=== PATIENT | female | born 1970 | race Caucasian/White ===

== ENCOUNTER → 2016-09-03 | Outpatient (CLI) | payer BC ==
--- NOTE | 2016-09-03 12:58 | WWHP ---
DATE OF SERVICE: 09/03/2016 CHIEF COMPLAINT: The patient is here for her routine gynecologic exam and mammogram. HPI: This is a 45-year-old G2, P2 with an LMP of 08/27/2016. Her is status post vasectomy. She is without gynecologic complaints and states her periods are regular every month. PAST MEDICAL HISTORY: Hypothyroidism, status post thyroidectomy. MEDICATIONS: 1. Synthroid 112 mcg daily. 2. Multivitamin daily. ALLERGIES: No known drug allergies. PAST SURGICAL HISTORY: Breast reduction surgery x2. 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 SOCIAL HISTORY: She denies tobacco and drug use and has about 2 alcoholic drinks per week. She has been since 1990 and works for a [employer]. She also started [employer] in [facility]. REVIEW OF SYSTEMS: Weight has been stable. She denies respiratory, cardiac, or GI problems. PHYSICAL EXAM: Blood pressure 98/49. Height 5 feet 6-1/2 inches. Weight 154 pounds. Temperature 98.4, pulse 64. This a well-developed, well-nourished white female who is alert and oriented x3 in no acute distress. HEENT is within normal limits. NECK: Supple without mass or thyromegaly. CHEST AND LUNGS: Clear to auscultation. HEART: Regular rate and rhythm. Breasts are without mass or discharge. Axillary exam is negative for adenopathy. BACK: Negative for CVA tenderness. ABDOMEN: Soft, nontender, without palpable masses. PELVIC EXAM: Normal external genitalia. Cervix and vagina appear normal. There is no evidence of prolapse. The uterus is midposition, nongravid size and nontender. There are no palpable adnexal masses or tenderness. Rectal exam is negative for mass or tenderness and is negative for occult blood. EXTREMITIES: Nontender. IMPRESSION: A 45-year-old gynecologically healthy female with normal gynecologic exam whose is status post vasectomy. PLAN: 1. Pap smear was performed. 2. Self-breast examination was discussed. 3. Mammogram will be done today. 4. Osteoporosis prevention was discussed. 5. She will return in one year.
--- NOTE | 2016-09-05 12:30 | MM ---
Reason for exam: screening (asymptomatic). Last mammogram was performed 2 years and 4 months ago. History: Family history of breast cancer in paternal aunt at age 40. Reductions of both breasts, 2005. Reductions of both breasts, 1993. Physical Findings: A clinical breast exam by your physician is recommended on an annual basis and results should be correlated with mammographic findings. MG 3D Screening Mammo W/Cad Bilateral CC and MLO view(s) were taken. Prior study comparison: May 10, 2014, bilateral MG screening mammo w CAD. May 12, 2012, mammogram, performed at [facility]. September 25, 2010, mammogram, performed at [facility]. The breast tissue is heterogeneously dense. This may lower the sensitivity of mammography. Post mammoplasty changes. New grouped calcifications upper outer quadrant right breast. New nodularity 12 o'clock left breast. ASSESSMENT: Incomplete: need additional imaging evaluation, BI-RAD 0 RECOMMENDATION: Special view mammogram of the right breast. Ultrasound of the left breast. [facility] will attempt to contact patient to return for supplemental views and ultrasound.
== END | disposition home or self-care (01) ==
LOC: WWCWWP 11:14
PROVIDERS: ATTEND Obstetrics & Gynecology
DX: Z12.31 Encounter for screening mammogram for malignant neoplasm of breast (principal); R92.8 Other abnormal and inconclusive findings on diagnostic imaging of breast
CPT/HCPCS: 77063; G0202

== ENCOUNTER → 2016-09-17 | Outpatient (CLI) | payer BC ==
--- NOTE | 2016-09-17 14:48 | MM ---
Reason for exam: additional evaluation requested from abnormal screening. Last mammogram was performed less than 1 month ago. History: Family history of breast cancer in paternal aunt at age 40. Reductions of both breasts, 2005. Reductions of both breasts, 1993. Physical Findings: Nurse did not find any significant physical abnormalities on exam. MG Work Up Mamm w CAD RT LM, CC with magnification, and LM with magnification view(s) were taken of the right breast. Prior study comparison: September 05, 2016, bilateral MG 3d screening mammo w/cad. May 10, 2014, bilateral MG screening mammo w CAD. Suspicious cluster of pleomorphic calcifications persists in the right breast. These results were verbally communicated with the patient and result sheet given to the patient on 09/17/16. ASSESSMENT: Suspicious, BI-RAD 4 RECOMMENDATION: Stereotactic core biopsy of the right breast. PENDING APPOINTMENT FOR SURGICAL CONSULTATION.
--- NOTE | 2016-09-17 14:50 | USB ---
Reason for exam: additional evaluation requested from abnormal screening. History: Family history of breast cancer in paternal aunt at age 40. Reductions of both breasts, 2006. Reductions of both breasts, 1993. US Breast Workup Limited LT Left breast ultrasound demonstrates a 0.7 x 0.9 x 0.5cm oval, cystic lesion at 12 o'clock, simple cyst. These results were verbally communicated with the patient and result sheet given to the patient on 09/17/16. ASSESSMENT: Benign, BI-RAD 2 us BIRADS 4 Suspicious mammogram. RECOMMENDATION: Stereotactic core biopsy. (right breast) PENDING APPOINTMENT FOR SURGICAL CONSULTATION. FRANKD
== END ==
LOC: RADMAMWWP 12:59
PROVIDERS: ATTEND Obstetrics & Gynecology
DX: R92.8 Other abnormal and inconclusive findings on diagnostic imaging of breast (principal)
CPT/HCPCS: 76642; G0206

== ENCOUNTER → 2016-09-20 | Day surgery (SDC) | payer BC ==
[~2016-09-20] MED LIST: ALPRAZolam 0.25 MG TAB ONE; BACITRACIN OINT 1 EACH PACKET TOPICAL ONE; LIDOCAINE 1% INJ 10MG/ML (20 ML MDV) ONE; SODIUM BICARB 4% 5 ML VIAL (0.48 MEQ/ML) ONE
--- NOTE | 2016-09-20 10:21 | MM ---
EXAMINATION TYPE: MG stereo VAD BX RT DATE OF EXAM: 09/20/2016 9:22 AM COMPARISON: Mammogram for May 2014, 17 September 2016 CLINICAL HISTORY: Abnormal mammogram TECHNIQUE: Stereotactic guided core biopsy of right breast. FINDINGS: The procedure of stereotactic guided core biopsy was explained to the patient. Benefits, alternatives, and risks were discussed. An informed consent was then obtained. The skin overlying a suitable path to the calcifications was localized with mammography, the skin was prepped, lidocaine used for local anesthesia. A vacuum assisted biopsy gun was used to obtain multiple core samples. Metallic clip was then placed. The patient tolerated the procedure well without any immediate complication. The patient was kept in the radiology department for short stay after the procedure and then discharged home in stable condition. Targeted calcifications are identified in specimen mammogram. Post biopsy digital mammogram shows the clip to appear in satisfactory position relative to the targeted area of concern on the preprocedure images. IMPRESSION: SUCCESSFUL, UNCOMPLICATED STEREOTACTIC GUIDED CORE BIOPSY OF AREA OF CONCERN IN THE right BREAST, FULL PATHOLOGY RESULTS TO FOLLOW. Pathology Results: Benign BREAST, RIGHT, CORE BIOPSY: FIBROCYSTIC CHANGES INCLUDING CYSTS, FIBROSIS, APOCRINE METAPLASIA AND CALCIUM OXYLATE CRYSTALS. Recommendation Follow up mammogram of the right breast in 6 months. BLANCA
== END ==
LOC: RADMAMWWP 07:06
PROVIDERS: ATTEND Surgery
DX: N60.11 Diffuse cystic mastopathy of right breast (principal); N60.31 Fibrosclerosis of right breast; N60.81 Other benign mammary dysplasias of right breast; R92.8 Other abnormal and inconclusive findings on diagnostic imaging of breast
CPT/HCPCS: 88305; 19081; A4648; J2001

== ENCOUNTER → 2019-04-20 | Outpatient (CLI) | payer BC ==
[2019-04-20 09:41] VITALS: BP 127/88; PULSE 58; RESP 18; TEMP 98; BMI 25.0
--- NOTE | 2019-04-20 11:52 | MM ---
Reason for exam: additional evaluation requested from prior study. Last mammogram was performed 2 years and 7 months ago. History: Family history of breast cancer in paternal aunt at age 40. Benign MG stereo VAD BX RT of the right breast, September 20, 2016. Reductions of both breasts, 2005. Reductions of both breasts, 1993. Physical Findings: Dr. Torres did breast exam. MG 3D Diag Mammo W/Cad LATIA Bilateral CC and MLO view(s) were taken. Prior study comparison: September 17, 2016, right breast MG work up mamm w CAD RT. September 05, 2016, bilateral MG 3d screening mammo w/cad. The breast tissue is heterogeneously dense. This may lower the sensitivity of mammography. There is a 1.2cm mass of the central upper left breast 4.5cm from nipple with internal calcifications. Benign appearing bilateral calcifications. Right biopsy marker noted. Post reduction change bilaterally. These results were verbally communicated with the patient and result sheet given to the patient on 04/20/19. ASSESSMENT: Incomplete: need additional imaging evaluation, BI-RAD 0 RECOMMENDATION: Ultrasound of the left breast. (upper outer quadrant)
--- NOTE | 2019-04-20 11:54 | USB ---
Reason for exam: additional evaluation requested from abnormal screening. History: Family history of breast cancer in paternal aunt at age 40. Benign MG stereo VAD BX RT of the right breast, September 20, 2016. Reductions of both breasts, 2005. Reductions of both breasts, 1993. US Breast Limited LT Left limited breast ultrasound including focal area of concern, retroareolar and axilla demonstrates a 0.8 x 0.6 x 0.5cm cystic lesion at 12 o'clock, a 0.3 x 0.3 x 0.4cm cystic lesion at 12 o'clock, both directly adjacent, benign, corresponds to mammogram, similar to ultrasound of 09/17/16 and duct ectasia at the nipple. These results were verbally communicated with the patient and result sheet given to the patient on 04/20/19. ASSESSMENT: Benign, BI-RAD 2 RECOMMENDATION: Routine screening mammogram of both breasts in 1 year.
--- NOTE | 2019-04-20 12:25 | P.HPOB ---
History of Present Illness H&P Date: 04/20/19 Chief Complaint: The patient is here for her routine gynecologic exam and ma mmogram. This is a 48-year-old with an LMP of March 2019. She states her menstrual periods have been fairly regular every month, but she has been experiencing significant hot flashes and night sweats which can be "awful" at times. She recently started taking a supplement for menopausal symptoms which she started yesterday. She states that her hot flashes have seemed better over the last 24 hours, but it is too early to tell how much the supplement is helping. Her biggest problem seems to be difficulty sleeping which is made worse by the night sweats and hot flashes. She states it is been a few years since she has really slept well. She tends to fall asleep without much problems initially, but will typically wake up around 1 AM and had a difficult time getting back to sleep. Review of Systems The patient has been stable over the last 2 years. She denies any current respiratory, cardiac, or G.I. problems. Earlier in the year, she did have some IBS type symptoms that lasted about 6 months but did eventually resolve. Past Medical History Past Medical History: Thyroid Disorder Additional Past Medical History / Comment(s): Hypothyroidism status post thyroidectomy. 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 History of Any Multi-Drug Resistant Organisms: None Reported Past Surgical History: Breast Surgery Additional Past Surgical History / Comment(s): Breast reduction surgery 2. Past Psychological History: No Psychological Hx Reported Smoking Status: Never smoker Past Alcohol Use History: Occasional (2 per week) Past Drug Use History: None Reported Additional History: She has been since 1990 and works for a [employer]. 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 - Past Family History Mother Family Medical History: Thyroid Disorder Additional Family Medical History / Comment(s): Colon polyps which were benign. Medications and Allergies Home Medications Medication Instructions Recorded Confirmed Type Levothyroxine Sodium [Synthroid] 112 mcg PO DAILY 04/20/19 04/20/19 History Multivitamin [Multivitamins Adult 1 each PO DAILY 04/20/19 04/20/19 History Gummies] Turmeric Root Extract [Turmeric] 500 mg PO DAILY 04/20/19 04/20/19 History Allergies Allergy/AdvReac Type Severity Reaction Status Date / Time No Known Allergies Allergy Unverified 04/20/19 09:36 Exam Vital Signs Temp Pulse Resp BP Pulse Ox 04/20/19 09:38 98.0 F 58 L 18 127/88 97 Intake and Output 04/19/19 04/20/19 04/20/19 22:59 06:59 14:59 Other: Weight 70.307 kg Height 5 feet 6 inches, weight 155 pounds, BMI 25.0. This is a well-developed well-nourished white female who is alert and oriented times 3 in no acute distress. HEENT: Within normal limits. NECK: Supple without mass or thyromegaly. CHEST AND LUNGS: Clear to auscultation. HEART: Regular rate and rhythm. BREASTS: Are without mass or discharge. AXILLARY EXAM: Negative for adenopathy. BACK: Negative for CVA tenderness. ABDOMEN: Soft, nontender, without palpable masses. PELVIC EXAM: Normal external genitalia. Cervix and vagina appear normal. There is no unusual discharge. There is no evidence of prolapse. The uterus is midposition, nongravid size and nontender. There are no palpable adnexal masses or tenderness. RECTAL EXAM: There is a small noninflamed hemorrhoid at the anus. The rectal exam is otherwise negative for mass or tenderness and is negative for occult blood. EXTREMITIES: Nontender. IMPRESSION: 1. 48-year-old perimenopausal female with vasomotor symptoms and insomnia are probably related to the menopausal change. 2. Normal gynecologic exam. 3. is status post vasectomy. PLAN: 1. Pap smear was performed. 2. Self breast awareness was discussed with the patient. 3. Screening mammogram will be done today. 4. We have had a long discussion regarding options for menopausal symptoms including supplements, HRT and nonhormonal prescription medications such as clonidine or SSRI medications. We have also discussed other conservative measures such as dressing in layers and drinking icewater at the onset of vasomotor symptoms. She would like to continue trying her supplement for her symptoms since the symptoms did seem to improve initially. She will call in 2-4 weeks if her symptoms are not improving and we can consider other options. 5. She would like a prescription for something to help her to sleep since the insomnia has been causing problems for her. She states she has not been taking anything to help her sleep. A prescription for Ambien 5 mg by mouth at at bedtime when necessary for insomnia will be sent to [facility] on [facility]. I recommended that she could not take it every night because it can be some possible dependence. 6. She will keep a menstrual calendar and call if menstrual problems. 7. She was advised to return in one year for her annual well woman exam and when necessary.
== END | disposition home or self-care (01) ==
LOC: WWCWWP 09:23
PROVIDERS: ATTEND Obstetrics & Gynecology
DX: R92.8 Other abnormal and inconclusive findings on diagnostic imaging of breast (principal)
CPT/HCPCS: 77062; 77066

== ENCOUNTER → 2020-10-06 | Outpatient (CLI) | payer BC ==
--- NOTE | 2020-10-06 11:45 | MR ---
EXAMINATION TYPE: MR brain and iac wo/w con DATE OF EXAM: 10/06/2020 COMPARISON: None HISTORY: Hearing test showed high freq hearing loss right side TECHNIQUE: Multiplanar, multisequence images of the brain and brainstem with high-resolution small altei-af-isue images obtained through the internal auditory canals is performed without and with IV contrast, util izing 7 mL intravenous Gadavist . FINDINGS: Diffusion weighted images demonstrate no evidence of a recent infarct or other diffusion ab normality. There is no extra-axial fluid collection. Focus of hyperintensity present within the per iventricular white matter on the right frontal lobe, axial image 21 measures proximally 9 mm, additio nal periventricular focus of hyperintensity in the right temporal lobe measures 10 mm in AP dimension , smaller left parietal hyperintensity on axial image 20 measures 5.9 mm, total of 5 lesions suspecte d. The ventricular system and cisternal spaces are normal in size and appearance. The brain volume i s age appropriate. There is no cerebellopontine angle mass. No evident abnormal soft tissue along the internal auditory canals. Midline structures demonstrate normal morphology. The craniocervical junction appears within normal limits. Post contrast images demonstrate no abnormal enhancement. The dural venous sinuses appear pa tent. The visualized sinuses are remarkable for mucoperiosteal thickening within the maxillary sinuse s, ethmoid air cells and frontal sinus and the globes are intact. IMPRESSION: Nonspecific white matter demyelination. Findings could be related to hypertension, vascul itis, Lyme disease, migraine headaches, demyelinating disease is not excluded. Sinus disease.
== END | disposition home or self-care (01) ==
LOC: RADMRIMAIN 08:11
PROVIDERS: ATTEND Nurse Practitioner Family
DX: G37.8 Other specified demyelinating diseases of central nervous system (principal)
CPT/HCPCS: 70553; A9585

== ENCOUNTER → 2020-11-21 | Outpatient (CLI) | payer BC ==
[2020-11-21 08:11] VITALS: BP 106/69; PULSE 66; RESP 18; TEMP 97.9
--- NOTE | 2020-11-21 09:11 | P.HPOB ---
History of Present Illness H&P Date: 11/21/20 Chief Complaint: The patient is here for her routine gynecologic exam. This is a 57-year-old with an LMP of August 2020. The patient states her menstrual periods have been fairly regular prior to August. Her is status post vasectomy. She continues to have significant vasomotor symptoms and most bothersome to her it are the night sweats which can keep her awake at night. She did use Ambien as prescribed in 2019 sparingly. She has not used this for many months. She did try using a wild yam supplement which may have helped a small amount. She also recently tried her friends combine HRT for 5 days seems to have helped with her symptoms. She understands that she should not be taking other peoples prescription medications. She is otherwise without complaints. Review of Systems The patient's weight has been stable over the last year. She denies respiratory, cardiac, or G.I. problems. Past Medical History Past Medical History: Thyroid Disorder Additional Past Medical History / Comment(s): Hypothyroidism status post thyroidectomy. 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 History of Any Multi-Drug Resistant Organisms: None Reported Past Surgical History: Breast Surgery Additional Past Surgical History / Comment(s): Breast reduction surgery 2. Rhinoplasty. Past Psychological History: No Psychological Hx Reported Smoking Status: Never smoker Past Alcohol Use History: Occasional (3 per week) Past Drug Use History: None Reported Additional History: She has been since 1990 and works for a [employer]. 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 - Past Family History Mother Family Medical History: Thyroid Disorder Additional Family Medical History / Comment(s): Colon polyps which were benign. Medications and Allergies Home Medications Medication Instructions Recorded Confirmed Type Levothyroxine Sodium [Synthroid] 112 mcg PO DAILY 04/20/19 11/21/20 History Multivitamin [Multivitamins Adult 1 each PO DAILY 04/20/19 11/21/20 History Gummies] Allergies Allergy/AdvReac Type Severity Reaction Status Date / Time No Known Allergies Allergy Unverified 11/21/20 08:04 Exam Vital Signs Temp Pulse Resp BP Pulse Ox 11/21/20 08:05 97.9 F 66 18 106/69 98 Intake and Output 11/20/20 11/21/20 11/21/20 22:59 06:59 14:59 Other: Weight 70.76 kg Height 5 feet 6 inches, weight 156 pounds, BMI 25.2. This is a well-developed well-nourished white female who is alert and oriented times 3 in no acute distress. HEENT: Within normal limits. NECK: Supple without mass or thyromegaly. CHEST AND LUNGS: Clear to auscultation. HEART: Regular rate and rhythm. BREASTS: Are without mass or discharge. AXILLARY EXAM: Negative for adenopathy. BACK: Negative for CVA tenderness. ABDOMEN: Soft, nontender, without palpable masses. PELVIC EXAM: Normal external genitalia with mild atrophy. Cervix and vagina appear normal with mild atrophy. There is no unusual discharge. There is no evidence of prolapse. The uterus is midposition, nongravid size and nontender. There are no palpable adnexal masses or tenderness. RECTAL EXAM: Rectovaginal exam is negative for mass or tenderness and is negative for occult blood. EXTREMITIES: Nontender. IMPRESSION: 1. 49 year old perimenopausal female whose is status post vasectomy with normal gynecologic exam. 2. Perimenopausal symptoms including vasomotor symptoms, night sweats and problems sleeping. PLAN: 1. Pap smear was deferred since she had a normal one on 04/20/2019. 2. Self breast awareness was discussed with the patient. 3. Screening mammogram is due and the order slip was given to the patient for this. 4. We have had a long discussion regarding perimenopausal changes and symptoms. We have discussed various options including HRT, nonhormonal prescription medications such as SSRI medications and herbal supplements. We have discussed possible risks with HRT including the possible increased risk for heart attack, stroke, and breast cancer. At this time we have decided to proceed with a trial of paroxetine 10 mg by mouth daily. She was instructed to call she's having bad side effects including any thoughts of hurting herself. The prescription will be sent to [facility] on [facility]. if her symptoms are not improving, we'll consider other options including low-dose HRT. 5. Osteoporosis prevention was discussed. I have stressed the importance of adequate calcium, vitamin D and regular exercise. Recommended amounts of calcium and vitamin D were also discussed. 6. She will return in one month for reevaluation. She states she will make her mammogram appointment for that time. 7. She will also return in one year for her well woman examination and as needed.
== END ==
LOC: WWCWWP 07:58
PROVIDERS: ATTEND Obstetrics & Gynecology
DX: Z01.419 Encounter for gynecological examination (general) (routine) without abnormal findings (principal); N95.1 Menopausal and female climacteric states; R61 Generalized hyperhidrosis; E03.9 Hypothyroidism, unspecified; G47.8 Other sleep disorders; Z98.51 Tubal ligation status; Z79.890 Hormone replacement therapy

== ENCOUNTER → 2020-12-27 | Outpatient (CLI) | payer BC ==
[2020-12-27 07:48] VITALS: BP 107/60; PULSE 60; RESP 16; TEMP 97.9
--- NOTE | 2020-12-27 08:50 | P.PN ---
Progress Note - Text Progress Note Date: 12/27/20 Chief Complaint: Menopausal symptoms including hot flashes and difficulty staying asleep, here for a 1 month recheck after starting paroxetine for symptoms. HPI: This is a 50-year-old with an LMP of August 2020. The patient was seen on 11/21/2020 for her well woman examination. She was having significant vasomotor symptoms with significant hot flashes and night sweats which prevented her from getting good sleep at night. She states it has not been a problem falling asleep, but she typically had been getting up several times during the night because of the hot flashes. We discussed various options at that time and she was started on paroxetine 10 mg daily. The patient states her hot flashes and night sweats are less extreme and she feels, overall, her symptoms are about 20-25% better. She describes waking up at 5:30 in the morning and in the past, she would typically get up at that time because her mind is usually getting active at that time. However, with paroxetine, she did not feel like getting up and slept for a 2 1/2 hours more with a very deep sleep and she thinks this was a good thing. She also feels less angry during the hot flashes. She initially had some constipation which she thought may have been related to the paroxetine, but also may have been related to the calcium and vitamin D which she also started around the same time. The constipation has improved somewhat. ROS: She has lost about 2 pounds over the past 1 month. She denies unusual d madelyn or strange thoughts. GI: Slight constipation when she initially started the paroxetine as above. PE: Blood pressure: 107/60, Height: 5 feet 6-1/2 inches, Weight: 154 pounds, Temperature: 97.9, Pulse: 60. Pulse oximeter 100%. This is a well developed, well nourished, white female who is alert and orientedx3, in no acute distress. Impression: 1. 50-year-old perimenopausal female with slight improvement with moderate vasomotor symptoms, difficulty maintaining sleep through the night Plan: 1. We have discussed various options including slightly increasing the paroxetine dose, maintaining the same dose for a longer period of time, using no medications, and a trial of HRT. We have decided to continue the paroxetine at the same dose for 3 additional months. If she continues to not have menstrual periods and if she is not seeing more improvement with her symptoms, we will again consider low-dose HRT. 2. Electronic prescription for paroxetine 10 mg by mouth daily will be sent to [facility] for a 90 day supply. She will let me know if she is having any problems while taking the medication and we will reevaluate in 3 months. Time spent with the patient: 25 minutes
--- NOTE | 2020-12-28 10:06 | MM ---
Reason for exam: screening (asymptomatic). Last mammogram was performed 1 year and 8 months ago. History: Family history of breast cancer in paternal aunt at age 40. Benign MG stereo VAD BX RT of the right breast, September 20, 2016. Reductions of both breasts, 2005. Reductions of both breasts, 1993. Physical Findings: A clinical breast exam by your physician is recommended on an annual basis and results should be correlated with mammographic findings. MG 3D Screening Mammo W/Cad Bilateral CC and MLO view(s) were taken. Prior study comparison: April 20, 2019, bilateral MG 3d diag mammo w/cad LATIA. September 17, 2016, right breast MG work up mamm w CAD RT. There are scattered fibroglandular densities. There is a mass in the right upper outer quadrant at posterior depth and ultrasound 8-11 o'clock is recommended. ASSESSMENT: Incomplete: need additional imaging evaluation, BI-RAD 0 RECOMMENDATION: Ultrasound of the right breast. [facility] will attempt to contact patient to return for ultrasound.
== END ==
LOC: WWCWWP 07:12
PROVIDERS: ATTEND Obstetrics & Gynecology
DX: Z12.31 Encounter for screening mammogram for malignant neoplasm of breast (principal); N95.1 Menopausal and female climacteric states; K59.00 Constipation, unspecified
CPT/HCPCS: 77063; 77067

== ENCOUNTER → 2021-01-18 | Outpatient (CLI) | payer BC ==
--- NOTE | 2021-01-18 09:40 | USB ---
EXAMINATION TYPE: US breast workup limited RT DATE OF EXAM: 01/18/2021 COMPARISON: 12/27/2020 CLINICAL HISTORY: R92.8. Findings: Targeted right breast ultrasound was performed from 8-11 o'clock and in the retroareolar region and a xilla. In the right breast at 8:00, there is a 0.8 x 0.7 x 0.6 cm simple cyst which corresponds well in size, location and morphology to the asymmetry seen on mammogram and is benign. IMPRESSION: No sonographic evidence for malignancy. BI-RADS 2, benign. Patient is due for her bilateral mammogram in December 2021.
== END | disposition home or self-care (01) ==
LOC: RADUSWWP 08:52
PROVIDERS: ATTEND Obstetrics & Gynecology
DX: N60.01 Solitary cyst of right breast (principal)

== ENCOUNTER 2021-11-17 08:15 | Emergency (ER) | payer BC ==
[2021-11-17 08:26] VITALS: PULSE 72; TEMP 98.3
[2021-11-17] MEDS ORDERED: diphenhydrAMINE 50 MG/ML 1 ML VIAL IM STA (09:01)
[2021-11-17] MEDS ORDERED: predniSONE 50 MG TAB PO STA (09:01)
--- NOTE | 2021-11-17 09:10 | ED ---
General Adult HPI - General Chief complaint: Skin/Abscess/Foreign Body Stated complaint: Allergic Reaction Time Seen by Provider: 11/17/21 08:25 Source: patient, RN notes reviewed, old records reviewed Mode of arrival: ambulatory Limitations: no limitations - History of Present Illness Initial comments: This is a 50-year-old female presents emergency Department complaining of eye swelling. Patient states she's had ALLERGIC reactions for 20+ years but she doesn't know what she is ALLERGIC to. Patient states she uses some I creams that she wonders if she is ALLERGIC to she knows she has multiple food ALLERGIES but she cannot pinpoint it. Patient basically comes in today because of this occurs steroids really help her. Patient denies any difficulty breathing or difficulty swallowing. Patient denies any rashes or areas of erythema. - Related Data Home Medications Medication Instructions Recorded Confirmed Levothyroxine Sodium [Synthroid] 112 mcg PO DAILY 04/20/19 12/27/20 Multivitamin [Multivitamins Adult 1 each PO DAILY 04/20/19 12/27/20 Gummies] Previous Rx's Medication Instructions Recorded PARoxetine [Paxil] 10 mg PO DAILY #90 tab 12/27/20 predniSONE [Deltasone] 40 mg PO DAILY #20 tab 11/17/21 Allergies Allergy/AdvReac Type Severity Reaction Status Date / Time No Known Allergies Allergy Verified 11/17/21 08:26 Review of Systems ROS Statement: Those systems with pertinent positive or pertinent negative responses have been documented in the HPI. ROS Other: All systems not noted in ROS Statement are negative. Past Medical History Past Medical History: Thyroid Disorder Additional Past Medical History / Comment(s): Hypothyroidism status post thyroidectomy. 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 History of Any Multi-Drug Resistant Organisms: None Reported Past Surgical History: Breast Surgery Additional Past Surgical History / Comment(s): Breast reduction surgery 2. Rhinoplasty. Past Psychological History: No Psychological Hx Reported Smoking Status: Never smoker Past Alcohol Use History: Occasional Past Drug Use History: None Reported - Past Family History Mother Family Medical History: Thyroid Disorder Additional Family Medical History / Comment(s): Colon polyps which were benign. General Exam - General Exam Comments Initial Comments: GENERAL: Patient is well-developed and well-nourished. Patient is nontoxic and well- hydrated and is in no acute distress. ENT: Neck is soft and supple. No significant lymphadenopathy is noted. Oropharynx is clear. Moist mucous membranes. Neck has full range of motion without eliciting any pain. EYES: The sclera were anicteric and conjunctiva were pink and moist. Extraocular movements were intact and pupils were equal round and reactive to light. eyelids were swollen particularly the bottom eyelids. PULMONARY: Unlabored respirations. Good breath sounds bilaterally. No audible rales rhonchi or wheezing was noted. CARDIOVASCULAR: There is a regular rate and rhythm without any murmurs gallops or rubs. ABDOMEN: Soft and nontender with normal bowel sounds. SKIN: Skin is clear with no lesions or rashes and otherwise unremarkable. NEUROLOGIC: Patient is alert and oriented x3. Cranial nerves II through XII are grossly intact. Motor and sensory are also intact. Normal speech, volume and content. Symmetrical smile. MUSCULOSKELETAL: Normal extremities with adequate strength and full range of motion. LYMPHATICS: No significant lymphadenopathy is noted PSYCHIATRIC: Normal psychiatric evaluation. Limitations: no limitations Course Vital Signs 11/17/21 08:22 Temperature 98.3 F Pulse Rate 72 Respiratory 18 Rate Blood Pressure 138/64 O2 Sat by Pulse 98 Oximetry Disposition Clinical Impression: Allergic reaction Disposition: HOME SELF-CARE Instructions (If sedation given, give patient instructions): General Allergic Reaction (ED) Prescriptions: predniSONE [Deltasone] 40 mg PO DAILY #20 tab Is patient prescribed a controlled substance at d/c from ED?: No Referrals: Juan Manuel Hughes DO [Primary Care Provider] - 1-2 days Time of Disposition: 09:08
[2021-11-17 09:20] VITALS: BP 112/74; RESP 16
== END 2021-11-17 09:20 | disposition home or self-care (01) ==
LOC: EC 08:15
DX: T78.40XA Allergy, unspecified, initial encounter (principal); E89.0 Postprocedural hypothyroidism; Z79.890 Hormone replacement therapy
CPT/HCPCS: 99283; 96372; J1200; J7512

== ENCOUNTER → 2022-04-23 | Outpatient (CLI) | payer BC ==
[2022-04-23 13:14] VITALS: BP 121/79; PULSE 64; RESP 17; TEMP 97.8
--- NOTE | 2022-04-23 13:57 | P.HPOB ---
History of Present Illness H&P Date: 04/23/22 Chief Complaint: The patient is here for her routine gynecologic exam and ma mmogram. This is a 51-year-old with an LMP of August 2020. The patient was taking paroxetine 10 mg daily for vasomotor symptoms. This was started last year and she took this until February 2022. She states she did not like how she felt on paroxetine. She started HRT through an [employer] company that helps with women with menopausal symptoms. She has been taking estradiol 0.075 mg patches changed twice weekly and oral progesterone 100 mg daily. She states she has done very well with this and has only rare hot flashes and she is sleeping much better. Her hot flashes were severe and this caused him problem sleeping to the point where it affected her performance during the day. Since she is doing much better with HRT she would like to continue on with this and has asked me to prescribe HRT. She would like to stay on the same dose since she is doing very well with it. She denies any postmenopausal bleeding. She has noticed some weight gain over the past year. Review of Systems The patient has gained 7 pounds over the last year. She denies respiratory, cardiac, or G.I. problems. Past Medical History Past Medical History: Thyroid Disorder Additional Past Medical History / Comment(s): Hypothyroidism status post thyroidectomy. 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 History of Any Multi-Drug Resistant Organisms: None Reported Past Surgical History: Breast Surgery Additional Past Surgical History / Comment(s): Breast reduction surgery 2. Rhinoplasty. Past Psychological History: No Psychological Hx Reported Smoking Status: Never smoker Past Alcohol Use History: Occasional (2 per month) Past Drug Use History: None Reported Additional Drug Use History / Comment(s): She has used CBD Gummies rarely. Additional History: She has been since 1990 and works for a [employer]. 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 - Past Family History Mother Family Medical History: Thyroid Disorder Additional Family Medical History / Comment(s): Colon polyps which were benign. Medications and Allergies Home Medications Medication Instructions Recorded Confirmed Type Levothyroxine Sodium [Synthroid] 112 mcg PO DAILY 04/20/19 04/23/22 History Multivitamin [Multivitamins Adult 1 each PO DAILY 04/20/19 04/23/22 History Gummies] Progesterone, Micronized 100 mg PO HS 04/23/22 04/23/22 History [Progesterone] estradioL [estradioL (Twice 0.075 mg TOPICAL WEEKLY 04/23/22 04/23/22 History Weekly) 0.075 mg Patch] Allergies Allergy/AdvReac Type Severity Reaction Status Date / Time No Known Allergies Allergy Verified 04/23/22 12:55 Exam Vital Signs Temp Pulse Resp BP Pulse Ox 04/23/22 13:12 97.8 F 64 17 121/79 98 Intake and Output 04/22/22 04/23/22 04/23/22 22:59 06:59 14:59 Other: Weight 73.936 kg Height 5 feet 6 inches, weight 163 pounds, BMI 26.3. This is a well-developed well-nourished white female who is alert and oriented times 3 in no acute distress. HEENT: Within normal limits. NECK: Supple without mass or thyromegaly. CHEST AND LUNGS: Clear to auscultation. HEART: Regular rate and rhythm. BREASTS: Are without mass or discharge. AXILLARY EXAM: Negative for adenopathy. BACK: Negative for CVA tenderness. ABDOMEN: Soft, nontender, without palpable masses. PELVIC EXAM: Normal external genitalia with mild atrophy. Cervix and vagina appear normal with mild atrophy. There is no unusual discharge. There is no evidence of prolapse. The uterus is midposition, nongravid size and nontender. There are no palpable adnexal masses or tenderness. RECTAL EXAM: Rectovaginal exam is negative for mass or tenderness and is negative for occult blood. EXTREMITIES: Nontender. IMPRESSION: 1. 51-year-old menopausal female who has noticed significant improvement with vasomotor symptoms after starting HRT through a different provider. She is taken this for about 2 months without problems. 2. Normal gynecologic exam. PLAN: 1. Pap smear cotest was performed. 2. Self breast awareness was discussed with the patient. We have also discussed symptoms associated with inflammatory breast cancer. 3. Screening mammogram will be done today. 4. We have had a long discussion regarding menopausal symptoms and possible treatments. She did not do well with paroxetine. She seems to be doing well with HRT. We have had a long discussion regarding HRT including the WHI study findings. We have discussed the possible increased risk for heart attack, stroke, breast cancer, and blood clots. After discussing pros and cons, she feels strongly that she would like to continue on HRT with her current doses. The prescription for estradiol patches 0.075 mg changed twice weekly and micronized progesterone 100 mg by mouth daily will be continued at this time. We have discussed how I would like to find the lowest effective dose and to try to get her off of hormone for replacement therapy eventually. The electronic prescription for these medications will be sent to [facility] on [address]. 5. Colorectal cancer screening was discussed. She has done Cologuard testing through her PCP. 6. She has completed her Covid vaccination series and did receive a booster. She has also had Covid. 7. She will return in 6 months for a recheck on her HRT. We will discuss trying to wean down at that time. She was advised to return in one year for her annual well woman exam.
--- NOTE | 2022-04-24 18:41 | MM ---
Reason for Exam: Screening (asymptomatic). Last mammogram was performed 1 year(s) and 4 month(s) ago. Patient History: Menarche at age 15. First Full-Term at age 21. 2005, Bilateral Reduction. 1993, Bilateral Reduction. 09/20/2016, Benign Core Biopsy on the right side. Paternal aunt had breast cancer, age 40. Risk Values: Jaclyn 5 year model risk: 1.0%. NCI Lifetime model risk: 8.4%. Prior Study Comparison: 09/17/2016 Right Diagnostic Mammogram, [facility]. 04/20/2019 Bilateral Diagnostic Mammogram, [facility]. 12/27/2020 Bilateral Screening Mammogram, [facility]. Tissue Density: There are scattered fibroglandular densities. Findings: Analyzed By CAD. Chronic nodularity on both sides. Microclip right breast from prior biopsy. No significant change from prior exams. Overall Assessment: Benign, BI-RAD 2 Management: Screening Mammogram of both breasts in 1 year. 1. Patient should continue monthly self breast exams. 2. A clinical breast exam by your physician is recommended on an annual basis. 3. This exam should not preclude additional follow-up of suspicious palpable abnormalities. Electronically signed and approved by: Lalo Richardson M.D. Radiologist
== END ==
LOC: WWCWWP 12:44
PROVIDERS: ATTEND Obstetrics & Gynecology
DX: Z01.419 Encounter for gynecological examination (general) (routine) without abnormal findings (principal); Z78.0 Asymptomatic menopausal state
CPT/HCPCS: 77063; 77067

== ENCOUNTER → 2023-07-02 | Outpatient (CLI) | payer BC ==
--- NOTE | 2023-07-02 10:46 | MM ---
Reason for Exam: Screening (asymptomatic). Last mammogram was performed 1 year(s) and 2 month(s) ago. Patient History: Menarche at age 15. First Full-Term at age 21. Patient has history of breast feeding. 2005, Bilateral Reduction. 1993, Bilateral Reduction. 09/20/2016, Benign Core Biopsy on the right side. Paternal aunt had breast cancer, age 40. Risk Values: Jaclyn 5 year model risk: 1.1%. NCI Lifetime model risk: 8.2%. Prior Study Comparison: 04/20/2019 Bilateral Diagnostic Mammogram, [facility]. 12/27/2020 Bilateral Screening Mammogram, [facility]. 04/23/2022 Bilateral MG 3D screening mammo w/cad, [facility]. Tissue Density: There are scattered fibroglandular densities. Findings: Analyzed By CAD. There is no suspicious group of microcalcifications or new suspicious mass. Overall Assessment: Benign, BI-RAD 2 Management: Screening Mammogram of both breasts in [address] [facility] will attempt to contact patient to return for supplemental views and ultrasound if indicated. Patient should continue monthly self-breast exams. A clinical breast exam by your physician is recommended on an annual basis. This exam should not preclude additional follow-up of suspicious palpable abnormalities. Note on Jaclyn scores and lifetime risk: 1. A Jaclyn score greater than 3% is considered moderate risk. If this is the case, consider specialist referral to assess eligibility for a risk reducing agent. 2. If overall lifetime risk for the development of breast cancer is 20% or higher, the patient may qualify for future screening with alternating mammogram and breast MRI. Electronically signed and approved by: Tima Marroquin DO
--- NOTE | 2023-07-03 14:13 | BD ---
EXAMINATION TYPE: Axial Bone Density DATE OF EXAM: 07/02/2023 CLINICAL HISTORY: 52 years old Female. ICD-10 CODE: E07.9 THY DISORDER, UNSPEC Height: 65.8 Weight: 137 FRAX RISK QUESTIONS: nothing to note here. RISK FACTORS HISTORY OF: Postmenopausal woman: yes, at 51 Take estrogen and/or progesterone medications: yes, for about a yr now... Hyperparathyroidism: no Adrenal Insufficiency: no MEDICATIONS: Thyroid Medications: yes, synthroid, 26 yrs Additional Medications: vit d and calcium Additional History: hx of goiter, thyroid removed 26 yrs ago, EXAM MEASUREMENTS: Bone mineral densitometry was performed using the [employer] System. Bone mineral density as measured about the Lumbar spine is: ----- L1-L4(G/cm2): 1.330 T Score Values are as follows: ----- L1: 0.0 ----- L2: 0.6 ----- L3: 1.1 ----- L4: 3.1 ----- L1-L4: 1.2 Z Score Values are as follows: ----- L1: 0.9 ----- L2: 1.5 ----- L3: 2.0 ----- L4: 4.0 ----- L1-L4: 2.2 Bone mineral density is her first bone density, baseline study. Bone mineral density about the R hip (g/cm2): 1.178 Bone mineral density about the L hip (g/cm2): 1.239 T Score values are as follows: -----R Neck: 0.7 -----L Neck: 0.7 -----R Total: 1.4 -----L Total: 1.23 Z Score values are as follows: -----R Neck: 1.8 -----L Neck: 1.8 -----R Total: 2.1 -----L Total: 2.6 Bone mineral density is her first dexa study....baseline. FRAX%s: The graph provided illustrates a 3.8% chance for a major osteoporotic fx and a 0.0% chance fo r the hips probability for fx in 10 years time. IMPRESSION: Normal (Values between +1 and -1 indicate normal bone mass). Consider repeating this study in 5 year s or sooner if there is some new clinical indication. NOTE: T-SCORE=SD OF THE YOUNG ADULT MEAN.
== END | disposition home or self-care (01) ==
LOC: RADBDWWP 08:47
PROVIDERS: ATTEND Obstetrics & Gynecology
DX: Z12.31 Encounter for screening mammogram for malignant neoplasm of breast (principal); E07.9 Disorder of thyroid, unspecified; Z80.3 Family history of malignant neoplasm of breast
CPT/HCPCS: 77063; 77067; 77080

== ENCOUNTER → 2023-07-02 | Outpatient (CLI) | payer BC ==
[2023-07-02 08:23] VITALS: BP 111/75; PULSE 68; RESP 16; TEMP 98.3
--- NOTE | 2023-07-02 09:02 | P.HPOB ---
History of Present Illness H&P Date: 07/02/23 Chief Complaint: The patient is here for her routine gynecologic exam and ma mmogram. This is a 52-year-old with an LMP of 2020. The patient states she is doing well with HRT. She thinks she has done very well with this dose after we decreased the dose from estradiol 0.075 mg patches to 0.05 mg patches. She is without gynecologic complaints and denies any postmenopausal bleeding. She has felt a small area of tissue beneath the left breast which she states is about great size and is soft and nontender. She mentioned this to her PCP who ordered an ultrasound. This was done at the [facility] at the [facility]. She was considering seeing a breast specialist to see if this was displaced breast tissue. Review of Systems The patient has lost 24 pounds over the last year. This has been intentional weight loss with diet and exercise. She has been using the [employer] vita which helps her monitor her food intake. She denies respiratory, cardiac, or G.I. problems. Past Medical History Past Medical History: Thyroid Disorder Additional Past Medical History / Comment(s): Hypothyroidism status post thyroidectomy. 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 History of Any Multi-Drug Resistant Organisms: None Reported Past Surgical History: Breast Surgery Additional Past Surgical History / Comment(s): Breast reduction surgery 2. Rhinoplasty. Past Psychological History: No Psychological Hx Reported Smoking Status: Never smoker Past Alcohol Use History: Occasional (5 drinks per month.) Past Drug Use History: None Reported Additional Drug Use History / Comment(s): She has used CBD Gummies rarely. Additional History: She has been since 1990 and works for a [employer] She will spend part of the year in [place] where her grandchild is. - Past Family History Mother Family Medical History: Thyroid Disorder Additional Family Medical History / Comment(s): Colon polyps which were benign. Medications and Allergies Home Medications Medication Instructions Recorded Confirmed Type Levothyroxine Sodium [Synthroid] 112 mcg PO DAILY 04/20/19 07/02/23 History Multivitamin [Multivitamins Adult 1 each PO DAILY 04/20/19 07/02/23 History Gummies] Progesterone, Micronized 100 mg PO HS #90 cap 04/23/22 07/02/23 Rx [Progesterone] Estradiol 0.05MG/24Hr Biwkptch 1 patch TRANSDERM DIRECTED #24 08/13/22 07/02/23 Rx [Vivelle-Dot 0.05 MG] patch Allergies Allergy/AdvReac Type Severity Reaction Status Date / Time peanut Allergy Rash/Hives Unverified 07/02/23 08:07 shellfish derived [Shellfish] Allergy Rash/Hives Unverified 07/02/23 08:07 Exam Vital Signs Temp Pulse Resp BP Pulse Ox 07/02/23 08:09 98.3 F 68 16 111/75 97 Intake and Output 07/01/23 07/02/23 07/02/23 22:59 06:59 14:59 Other: Weight 63.049 kg Height 5 feet 6 inches, weight 139 pounds, BMI 22.4. This is a well-developed well-nourished white female who is alert and oriented times 3 in no acute distress. HEENT: Within normal limits. NECK: Supple without mass or thyromegaly. CHEST AND LUNGS: Clear to auscultation. There is a palpable lipoma in the midcl avicular line midway between the left breast and the left inferior costal border. The lipoma measures are partially 3 x 2.5 cm and is soft and nontender. It is also not fixed. HEART: Regular rate and rhythm. BREASTS: Are without mass or discharge. AXILLARY EXAM: Negative for adenopathy. BACK: Negative for CVA tenderness. ABDOMEN: Soft, nontender, without palpable masses. PELVIC EXAM: Normal external genitalia with minimal atrophy. Cervix and vagina appear normal with minimal atrophy. There is no unusual discharge. There is no evidence of prolapse. The uterus is midposition, nongravid size and nontender. There are no palpable adnexal masses or tenderness. RECTAL EXAM: Rectovaginal exam is negative for mass or tenderness and is negative for occult blood. EXTREMITIES: Nontender. IMPRESSION: 1. 52-year-old menopausal female doing well on HRT with normal gynecologic exam. 2. Benign lipoma measuring approximately 3 x 2.5 cm inferior to the left breast. This does not seem to be breast tissue based on its location and separation from the breast. PLAN: 1. Pap smear was deferred since she had a negative Pap smear cotest on 04/23/2022. 2. Self breast awareness was discussed with the patient. We have also discussed symptoms associated with inflammatory breast cancer. 3. Screening mammogram will be done today. 4. Osteoporosis prevention was discussed. I have stressed the importance of adequate calcium, vitamin D and regular exercise. Recommended amounts of calcium and vitamin D were also discussed. Her PCP recommended that she have a bone density test because of her long history of hypothyroidism status post thyroidectomy. This will be done today. 5. She will continue HRT in the form of estradiol patches 0.05 mg patches changed twice weekly as well as micronized progesterone 100 mg daily. The electronic prescription will be sent to [facility]. I have asked her to try to wean the estrogen gradually she can go from changing the patches every 4 days to 5 days or use a half a patch every other times she changes it. She will try to find the lowest effective dose. 6. Colorectal cancer screening was discussed. She has recently done a Cologuar d test which was negative per the patient. 7. I do believe the finding under the left breast is a benign lipoma. She will keep an eye on this and let her PCP now if increases in size or if there are changes. 8. She was advised to return in one year for her annual well woman exam.
== END ==
LOC: WWCWWP 08:00
PROVIDERS: ATTEND Obstetrics & Gynecology
DX: Z12.31 Encounter for screening mammogram for malignant neoplasm of breast (principal); E03.9 Hypothyroidism, unspecified; D17.79 Benign lipomatous neoplasm of other sites; Z78.0 Asymptomatic menopausal state; Z91.013 Allergy to seafood; Z91.010 Allergy to peanuts; Z79.890 Hormone replacement therapy

== ENCOUNTER → 2023-08-13 | Outpatient (CLI) | payer OTHER ==
--- NOTE | 2023-08-13 14:49 | FL ---
EXAM: FL arthrogram shoulder RT DATE OF EXAM: 08/13/2023 2:33 PM COMPARISON STUDIES: None PATIENT HISTORY: Right shoulder pain TECHNIQUE: Fluoroscopic guided right shoulder arthrogram. 19 seconds of fluoroscopy time provided. Th is fluoroscopic room cannot provide a DAP. FINDINGS: Procedure was discussed with patient. The risks, benefits, complications, and alternatives were discu ssed. Informed consent was obtained. Patient was placed supine on the fluoroscopic table and prepped and draped in the usual sterile fashion. Approximately 5 cc of a mixture of sterile saline, Gadavist, and Isovue was administered into the joint space under direct fluoroscopic guidance. Repeat imaging demonstrated ideal placement of the contrast. The technologist was to instruct the patient for shoulder exercises prior to her MRI imaging. All elements of maximal barrier and sterile technique utilized. IMPRESSION: 1. Successful pre-MRI fluoroscopic right shoulder arthrogram.
== END | disposition home or self-care (01) ==
LOC: RADFLMAIN 12:50
PROVIDERS: ATTEND Orthopaedic Surgery
DX: S43.431A Superior glenoid labrum lesion of right shoulder, initial encounter (principal)
CPT/HCPCS: 23350; 73040; 73222; A9585; Q9967

== ENCOUNTER → 2024-08-03 | Outpatient (CLI) | payer OTHER ==
[2024-08-03 16:22] VITALS: BP 113/75; PULSE 75; RESP 16; TEMP 98.1
--- NOTE | 2024-08-03 17:09 | P.HPOB ---
History of Present Illness H&P Date: 08/03/24 Chief Complaint: The patient is here for her routine gynecologic exam. This is a 53-year-old with an LMP of 2020. The patient states she is doing well with HRT. She has been using estradiol 0.05 mg patches 2 times a week and progesterone 100 mg daily. She denies any postmenopausal bleeding. She is without gynecologic complaints. She states the HRT has helped significantly with hot flashes and she also feels that it helps with her joints. Review of Systems The patient has gained 13 pounds over the last year. She denies respiratory, cardiac, or G.I. problems. Past Medical History Past Medical History: Thyroid Disorder Additional Past Medical History / Comment(s): Hypothyroidism status post thyroidectomy. 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 History of Any Multi-Drug Resistant Organisms: None Reported Past Surgical History: Breast Surgery Additional Past Surgical History / Comment(s): Breast reduction surgery 2. Rhinoplasty. Past Psychological History: No Psychological Hx Reported Smoking Status: Never smoker Past Alcohol Use History: Occasional (4 drinks per month.) Past Drug Use History: None Reported Additional Drug Use History / Comment(s): She has used CBD Gummies rarely. Additional History: She has been since 1990 and works for a [employer]. She spends part of the year in [place] where her grand son is. - Past Family History Mother Family Medical History: Thyroid Disorder Additional Family Medical History / Comment(s): Colon polyps which were benign. Medications and Allergies Home Medications Medication Instructions Recorded Confirmed Type Levothyroxine Sodium [Synthroid] 112 mcg PO DAILY 04/20/19 08/03/24 History Multivitamin [Multivitamins Adult 1 each PO DAILY 04/20/19 08/03/24 History Gummies] Estradiol 0.05MG/24Hr Biwkptch 1 patch TRANSDERM DIRECTED #24 07/02/23 08/03/24 Rx [Vivelle-Dot 0.05 MG] patch Progesterone, Micronized 100 mg PO DAILY #90 capsule 07/02/23 08/03/24 Rx [Progesterone] Allergies Allergy/AdvReac Type Severity Reaction Status Date / Time peanut Allergy Rash/Hives Unverified 07/02/23 08:07 shellfish derived [Shellfish] Allergy Rash/Hives Unverified 07/02/23 08:07 Exam Vital Signs Temp Pulse Resp BP 08/03/24 16:14 98.1 F 75 16 113/75 Intake and Output 08/03/24 08/03/24 08/03/24 06:59 14:59 22:59 Other: Weight 68.946 kg Height 5 feet 6 inches, weight 152 pounds, BMI 24.5. This is a well-developed well-nourished white female who is alert and oriented times 3 in no acute distress. HEENT: Within normal limits. NECK: Supple without mass or thyromegaly. CHEST AND LUNGS: Clear to auscultation. HEART: Regular rate and rhythm. BREASTS: Are without mass or discharge. Stable small lipoma inferior to the left breast measuring approximately 3 cm which is stable from previous exam. AXILLARY EXAM: Negative for adenopathy. BACK: Negative for CVA tenderness. ABDOMEN: Soft, nontender, without palpable masses. PELVIC EXAM: Normal external genitalia with minimal atrophy. Cervix and vagina appear normal with minimal atrophy. There is no unusual discharge. There is no evidence of prolapse. The uterus is midposition, nongravid size and nontender. There are no palpable adnexal masses or tenderness. RECTAL EXAM: Rectovaginal exam is negative for mass or tenderness and is negative for occult blood. EXTREMITIES: Nontender. IMPRESSION: 1. 53-year-old menopausal female doing well on HRT, with normal gynecologic exam. 2. Stable small lipoma inferior to the left breast. PLAN: 1. Pap smear was deferred since she had a negative Pap smear cotest on 04/23/2022. 2. Self breast awareness was discussed with the patient. We have also discussed symptoms associated with inflammatory breast cancer. 3. Screening mammogram is due and the order slip was given to the patient for this. 4. Osteoporosis prevention was discussed. She had a normal bone density test in 2022. Will plan on repeating the bone density test at age 59. 5. She will continue HRT form of estradiol patches 0.05 mg patches changed to twice weekly as well as micronized progesterone 100 mg p.o. daily. I have asked her to try to attempt gradually weaning sometime this year. We have discussed ways she can do this. I would like to try to get her off of HRT by the age of 59. We have discussed increasing risks including gradually increasing risk for breast cancer, stroke and heart attack. Electronic prescription will be sent to [facility]. 6. She was advised to return in one year for her annual well woman exam.
== END ==
LOC: WWCWWP 15:59
PROVIDERS: ATTEND Obstetrics & Gynecology
DX: N95.9 Unspecified menopausal and perimenopausal disorder (principal); D17.79 Benign lipomatous neoplasm of other sites; Z91.013 Allergy to seafood; Z91.010 Allergy to peanuts

== ENCOUNTER → 2024-08-05 | Outpatient (CLI) | payer OTHER ==
--- NOTE | 2024-08-06 07:33 | MM ---
Reason for Exam: Screening (asymptomatic). Last mammogram was performed 1 year(s) and 1 month(s) ago. Patient History: Menarche at age 15. First Full-Term at age 21. Postmenopausal. Patient has history of breast feeding. Currently using Estrogen and Progesterone, starting at age 51. 2005, Bilateral Reduction. 1993, Bilateral Reduction. 09/20/2016, Benign Core Biopsy on the right side. Paternal aunt had breast cancer, age 40. Risk Values: Jaclyn 5 year model risk: 1.1%. NCI Lifetime model risk: 8.1%. Prior Study Comparison: 12/27/2020 Bilateral Screening Mammogram, [facility]. 04/23/2022 Bilateral MG 3D screening mammo w/cad, [facility]. 07/02/2023 Bilateral MG 3D screening mammo w/cad, [facility]. Tissue Density: The breasts are heterogeneously dense, which may obscure small masses. Findings: Analyzed By CAD. Right breast biopsy clip. Right breast: There is no suspicious group of microcalcifications or new suspicious mass. Left breast: There is no suspicious group of microcalcifications or new suspicious mass. Overall Assessment: Negative, BI-RAD 1 Management: Screening Mammogram of both breasts in [address] [facility] will attempt to contact patient to return for supplemental views and ultrasound if indicated. Patient should continue monthly self-breast exams. A clinical breast exam by your physician is recommended on an annual basis. This exam should not preclude additional follow-up of suspicious palpable abnormalities. Note on Jaclyn scores and lifetime risk: 1. A Jaclyn score greater than 3% is considered moderate risk. If this is the case, consider specialist referral to assess eligibility for a risk reducing agent. 2. If overall lifetime risk for the development of breast cancer is 20% or higher, the patient may qualify for future screening with alternating mammogram and breast MRI. [facility], , 08/06/2024 7:30 AM. Electronically signed and approved by: Tima Marroquin DO
== END | disposition home or self-care (01) ==
LOC: RADMAMWWP 16:05
PROVIDERS: ATTEND Obstetrics & Gynecology
DX: Z12.31 Encounter for screening mammogram for malignant neoplasm of breast (principal); R92.333 Mammographic heterogeneous density, bilateral breasts; Z78.0 Asymptomatic menopausal state; Z80.3 Family history of malignant neoplasm of breast
CPT/HCPCS: 77063; 77067